=== PATIENT | male | born 1960 | race Caucasian/White ===

== ENCOUNTER → 2016-12-23 | Outpatient (CLI) | payer OTHER | LOC: RAD 15:09 | PROVIDERS: ATTEND Internal Medicine | DX: N50.82 Scrotal pain (principal); N43.2 Other hydrocele | CPT/HCPCS: 76870 ==

== ENCOUNTER 2017-02-26 17:11 | Emergency (ER) | payer SELFPAY ==
[~2017-02-26] VITALS: Ht 167.6 cm; Wt 81.1 kg
--- OUTSIDE RECORDS SUMMARY | 2017-02-26 17:15 | XMS REPORT | Continuity of Care Document ---
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 Visit Date/Time Discharge Status Pt. Type Provider Facility Loc./Unit Complaint [id number] 07/21/2014 13:04:00 2013 23:59:59 CLS Outpatient [id number] 12/23/2016 15:09:00 ACT Outpatient ZACH PEREZ, RYAN Mena [facility]
--- OUTSIDE RECORDS SUMMARY | 2017-02-26 17:16 | XMS REPORT | Continuity of Care Document ---
Author Author [facility] Address Unknown Phone Unavailable Allergies Medications Problems [...] Status Pt. Type Provider Facility Loc./Unit Complaint [id number] 07/21/2014 13:04:00 2013 23:59:59 CLS Outpatient [id number] 12/23/2016 15:09:00 ACT Outpatient ZACH PEREZ, RYAN Mena [facility]
[2017-02-26] MEDS ORDERED: MULT-593 PO (17:34)
[2017-02-26] MEDS: ONDANSETRON 4 MG (ZOFRAN) ORAL DISSOLVE TAB PO ONE (17:53)
[2017-02-26] MEDS: LIDOCAINE/EPINEPHRINE 1%-1:100,000 (XYLOCAINE) 20ML VIAL TOP ONE (17:53)
[2017-02-26 18:04] LABS: BASOPHILS % (AUTO) 1 % (0-2); EOSINOPHILS # (AUTO) 0.1 10^3uL; EOSINOPHILS % (AUTO) 1 % (0-4); LYMPHOCYTES # (AUTO) 1.1 X10^3; MEAN CORPUSCULAR HEMOGLOBIN 28.6 PG (26.0-34.0); MEAN PLATELET VOLUME 10.3 FL (6.0-9.5); MONOCYTES # (AUTO) 0.4 X10^3; MONOCYTES % (AUTO) 7 % (3-11); NEUTROPHILS # (AUTO) 4.8 X10^3; NEUTROPHILS % (AUTO) 75 % (51-67); PLATELET COUNT 129 10^3uL (150-450); WHITE BLOOD COUNT 6.49 10^3uL (4.0-11.0)
[2017-02-26 18:19] LABS: MEAN CORPUSCULAR HGB CONC 37.2 g/dL (31.0-37.0); MEAN CORPUSCULAR VOLUME 77 FL (80-100)
[2017-02-26 18:26] LABS: ANION GAP 19.1 MEQ/L (3-15)
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
--- NOTE | 2017-02-26 18:48 | NUR ---
REPORT GIVEN TO Len KHAN RN & CARE TSF TO SAME. CL
[2017-02-26] MEDS: TETANUS, DIPTHERIA, PERTUSSIS (ADACELL) VACCINE 0.5 ML VIAL IM ONE (18:59)
[2017-02-26] MEDS: TETANUS & DIPHTHERIA TOXOIDS (Td) 0.5 ML (DECAVAC) VIAL IM ONE (19:00)
[2017-02-26] MEDS: ceFAZolin 2,000 MG in SODIUM CHLORIDE 100 ML IV ONE (20:06)
[2017-02-26] MEDS: INSULIN REGULAR 1 UNIT/0.01 ML DOSE SC ONE (20:12)
[2017-02-26] MEDS ORDERED: METF500T4 PO (21:17)
[2017-02-26] MEDS ORDERED: CEPH500C PO (21:17)
[2017-02-26 21:39] VITALS: BP 129/92
== END 2017-02-26 21:35 | disposition home or self-care (01) ==
LOC: ED 17:12
DX: L03.114 Cellulitis of left upper limb (principal); E11.65 Type 2 diabetes mellitus with hyperglycemia; Z91.120 Patient's intentional underdosing of medication regimen due to financial hardship; Z91.19 Patient's noncompliance with other medical treatment and regimen; Z87.891 Personal history of nicotine dependence
CPT/HCPCS: 36415; 73130; 80048; 85025; 86140; 90471; 90715; 96365; 99283; J0690; J1815; J7030; J7050; 99282